=== PATIENT | female | born 1965 | race Caucasian/White ===

== ENCOUNTER 2017-05-20 10:57 | Day surgery (SDC) | payer OTHER ==
[2017-05-18 13:58] VITALS: BMI 60.2
[~2017-05-20 10:57] MED LIST: LACTATED RINGERS 1,000 ML IV SCH; LIDOCAINE 1% 20 ML VIAL (10MG/ML) FOR IV START INTRADERMA PRN
[2017-05-20 11:33] VITALS: RESP 16; TEMP 97.8
[2017-05-20 11:39] LABS: Glucose,Whole Blood 95 mg/dL (75-99)
[2017-05-20] MEDS ORDERED: PROPOFOL 10 MG/ML 20 ML VIAL IV ONE (12:45)
[2017-05-20] MEDS ORDERED: LIDOCAINE 1% INJ 10MG/ML (20 ML MDV) ONE (12:45)
--- NOTE | 2017-05-20 13:13 | P.PCN ---
Date of Procedure: 05/20/17 Procedure(s) Performed: Procedure: Total colonoscopy. Preoperative diagnosis: Screening for neoplasia. Postoperative diagnosis: Diverticulosis with no evidence of acute diverticulitis , strictures, polyps or cancer. Preparation: HalfLytely prep. Sedation: Was provided by anesthesia. Brief clinical history: The patient is a 51-year-old female who is referred for this evaluation for screening for neoplasia age being her risk factor. There is no family history of colon cancer. She has no significant abdominal complaints, bleeding or anemia. This would be her first colonoscopy. Procedure: With the patient on her left lateral decubitus position and after informed consent and adequate sedation, the perianal area was inspected and it did not show any fissures or fistulas. There were no masses felt on digital rectal examination. The Olympus CFQ 160L video colonoscope was then inserted in the rectum in the usual fashion and advanced to the cecum. There were several diverticular orifices seen scattered mostly on the left side with some on the right side and cecum but there was no evidence of acute diverticulitis or strictures. The mucosa appeared healthy. No polyps or tumors were seen. I retroflexed the endoscope in the rectum before the endoscope was withdrawn. The patient tolerated the procedure well. Plan: The patient was reassured. Discussed dietary measures. She will follow- up with you as planned and I recommended repeat exam in 10 years.
[2017-05-20 13:30] VITALS: BP 116/76; PULSE 76
== END 2017-05-20 13:57 | disposition home or self-care (01) ==
LOC: ORWHC2ENDO 10:57
DX: Z12.11 Encounter for screening for malignant neoplasm of colon (principal); K57.30 Diverticulosis of large intestine without perforation or abscess without bleeding; E66.01 Morbid (severe) obesity due to excess calories; Z68.44 Body mass index [BMI] 60.0-69.9, adult; M19.90 Unspecified osteoarthritis, unspecified site; Z79.899 Other long term (current) drug therapy
CPT/HCPCS: 81025; J2001; J2704; G0121

== ENCOUNTER → 2017-05-25 | Outpatient (CLI) | payer OTHER ==
--- NOTE | 2017-05-25 08:24 | MM ---
Reason for exam: screening (asymptomatic). Baseline mammogram. History: Patient is postmenopausal and is nulliparous. Physical Findings: Nurse did not find any significant physical abnormalities on exam. MG Screening Mammo w CAD Bilateral CC and MLO view(s) were taken. There are scattered fibroglandular densities. Intramammary nodes on the left. Nodular asymmetry anterior right breast on the MLO view without correlate on the CC view. As these are no comparisons, 6 month follow up recommended. These results were verbally communicated with the patient and result sheet given to the patient on 05/25/17. ASSESSMENT: Probably benign, BI-RAD 3 RECOMMENDATION: Follow-up diagnostic mammogram of the right breast in 6 months.
== END | disposition home or self-care (01) ==
LOC: RADMAMWWP 07:13
PROVIDERS: ATTEND Family Medicine
DX: Z12.31 Encounter for screening mammogram for malignant neoplasm of breast (principal)
CPT/HCPCS: 77067

== ENCOUNTER → 2021-02-04 | Outpatient (CLI) | payer BC ==
--- NOTE | 2021-02-04 15:32 | XR ---
EXAMINATION TYPE: XR chest 2V DATE OF EXAM: 02/04/2021 COMPARISON: NONE HISTORY: Shortness of breath TECHNIQUE: Frontal and lateral views of the chest are obtained. FINDINGS: There is no focal air space opacity, pleural effusion, or pneumothorax seen. The cardiac silhouette size is within normal limits. The osseous structures are intact. IMPRESSION: No acute cardiopulmonary process.
== END | disposition home or self-care (01) ==
LOC: RADXRMAIN 15:05
PROVIDERS: ATTEND Internal Medicine
DX: R06.02 Shortness of breath (principal)
CPT/HCPCS: 71046

== ENCOUNTER → 2021-02-04 | Outpatient (CLI) | payer BC ==
--- NOTE | 2021-02-05 10:01 | ECHOF ---
Referral Reason:R06.02 shortness of breath MEASUREMENTS -------- HEIGHT: 165.1 cm WEIGHT: 147.4 kg BP: IVSd: 1.0 cm (0.6 - 1.1) LVIDd: 4.5 cm (3.9 - 5.3) LVPWd: 1.1 cm (0.6 - 1.1) IVSs: 1.5 cm LVIDs: 2.3 cm LVPWs: 1.3 cm Ao Diam: 3.2 cm (2.0 - 3.7) AV Cusp: 2.2 cm (1.5 - 2.6) LA Diam: 2.7 cm (2.7 - 3.8) MV EXCURSION: 16.775 mm (> 18.000) MV EF SLOPE: 187 mm/s (70 - 150) EPSS: 1.2 cm MV E Ignacio: 0.79 m/s MV DecT: 150 ms MV A Ignacio: 0.87 m/s MV E/A Ratio: 0.91 RAP: 5.00 mmHg RVSP: 16.33 mmHg FINDINGS -------- This was a technically difficult study with suboptimal views. The left ventricular size is normal. There is mild concentric left ventricular hypertrophy. Overa ll left ventricular systolic function is normal with, an EF between 55 - 60 %. The RV was not well visualized. The left atrial size is normal. The right atrium was not well visualized. 5.0mg of Lumason was utilized for enhancement of images The aortic valve was not well visualized. The mitral valve is normal. Mild mitral regurgitation is present. The tricuspid valve appears structurally normal. Mild tricuspid regurgitation present. Right vent ricular systolic pressure is normal at < 35 mmHg. The pulmonic valve was not well visualized. The aortic root size is normal. IVC Not well visulized. There is no pericardial effusion. CONCLUSIONS -------- 1. This was a technically difficult study with suboptimal views. 2. The left ventricular size is normal. 3. There is mild concentric left ventricular hypertrophy. 4. Overall left ventricular systolic function is normal with, an EF between 55 - 60 %. 5. 5.0mg of Lumason was utilized for enhancement of images 6. Mild mitral regurgitation is present. 7. Mild tricuspid regurgitation present. 8. There is no pericardial effusion. AWNING MAKER: Jody Pradhan [facility]
== END | disposition home or self-care (01) ==
LOC: RADECHMAIN 14:26
PROVIDERS: ATTEND Internal Medicine
DX: R06.02 Shortness of breath (principal)
CPT/HCPCS: 93306; Q9950

== ENCOUNTER → 2021-03-25 | Outpatient (CLI) | payer BC ==
--- NOTE | 2021-03-26 13:56 | MM ---
Reason for exam: screening (asymptomatic). Last mammogram was performed 3 years and 10 months ago. History: Patient is postmenopausal and is nulliparous. Physical Findings: A clinical breast exam by your physician is recommended on an annual basis and results should be correlated with mammographic findings. MG Screening Mammo w CAD Bilateral CC, MLO, and XCCM view(s) were taken. Prior study comparison: May 25, 2017, bilateral MG screening mammo w CAD. There are scattered fibroglandular densities. There is chronic nodularity bilaterally. No significant changes when compared with prior studies. ASSESSMENT: Benign, BI-RAD 2 RECOMMENDATION: Routine screening mammogram of both breasts in 1 year.
== END | disposition home or self-care (01) ==
LOC: RADMAMWWP 09:37
PROVIDERS: ATTEND Internal Medicine
DX: Z12.31 Encounter for screening mammogram for malignant neoplasm of breast (principal)
CPT/HCPCS: 77067

== ENCOUNTER → 2022-04-27 | Outpatient (CLI) | payer SELFPAY ==
--- NOTE | 2022-04-28 17:59 | BD ---
EXAMINATION TYPE: Axial Bone Density DATE OF EXAM: 04/27/2022 COMPARISON: BASELINE CLINICAL HISTORY: 56 years old Female. ICD-10 CODE: N95.1 POST MENOPAUSAL SYMPTOMS Height: 64 Weight: 331 FRAX RISK QUESTIONS: Family History (Parent hip fracture): NO History of Fracture in Adulthood: YES 2017 RT ELBOW Secondary Osteoporosis: NO Rheumatoid Arthritis: NO RISK FACTORS HISTORY OF: Family History of Osteoporosis: YES FATHER Active: YES Diet low in dairy products/other sources of calcium: YES Postmenopausal woman: YES Lost more than 2 inches in height since high school: NO Frequent falls: NO Poor Health: NO MEDICATIONS: Thyroid Medications: YES Which medication: Levothyroxine How Lon MONTHS Additional Medications: YES RESTLESS LEG , NEURONTIN , IRON , VIT D , BABY ASPIRIN , EXAM MEASUREMENTS: Bone mineral densitometry was performed using the Yeelion System. Bone mineral density as measured about the Lumbar spine is: ----- L1-L4(G/cm2): 1.084 T Score Values are as follows: ----- L1: 0.0 ----- L2: -0.2 ----- L3: -1.2 ----- L4: -1.6 ----- L1-L4: -0.8 Bone mineral density BASELINE Bone mineral density about the R hip (g/cm2): 0.852 Bone mineral density about the L hip (g/cm2): 0.871 T Score values are as follows: -----R Neck: -1.9 -----L Neck: -2.7 -----R Total: -1.2 -----L Total: -1.1 Bone mineral density BASELINE FRAX%s: The graph provided illustrates a 15.5% chance for a major osteoporotic fx and a 3.1% chance f or the hips probability for fx in 10 years time. IMPRESSION: Osteoporosis (T Score less than -2.5). There is increased fracture risk and therapy is usually indicated based on age. Re-Screen 1-2 years. NOTE: T-SCORE=SD OF THE YOUNG ADULT MEAN.
--- NOTE | 2022-04-28 20:46 | MM ---
Reason for Exam: Screening (asymptomatic). Last mammogram was performed 1 year(s) and 1 month(s) ago. Patient History: Menarche at age 10. Patient has no children. Postmenopausal. Risk Values: Lisset 5 year model risk: 1.5%. NCI Lifetime model risk: 8.5%. Prior Study Comparison: 05/25/2017 Bilateral Screening Mammogram, [facility]. 03/25/2021 Bilateral Screening Mammogram, [facility]. Tissue Density: There are scattered fibroglandular densities. Findings: Analyzed By CAD. Unchanged low axillary tail lymph node on the left. There is no suspicious group of microcalcifications or new suspicious mass in either breast. Overall Assessment: Benign, BI-RAD 2 Management: Screening Mammogram of both breasts in 1 year. 1. Patient should continue monthly self breast exams. 2. A clinical breast exam by your physician is recommended on an annual basis. 3. This exam should not preclude additional follow-up of suspicious palpable abnormalities. Electronically signed and approved by: Concepcion Martinez M.D. Radiologist
== END | disposition home or self-care (01) ==
LOC: RADMAMWWP 14:12
PROVIDERS: ATTEND Internal Medicine
DX: Z12.31 Encounter for screening mammogram for malignant neoplasm of breast (principal); M81.0 Age-related osteoporosis without current pathological fracture; M85.88 Other specified disorders of bone density and structure, other site; Z78.0 Asymptomatic menopausal state
CPT/HCPCS: 77067; 77080

== ENCOUNTER → 2022-06-23 | Outpatient (CLI) | payer BC ==
--- NOTE | 2022-06-23 13:44 | XR ---
EXAMINATION TYPE: XR chest 2V DATE OF EXAM: 06/23/2022 COMPARISON: 02/05/2020 TECHNIQUE: PA and lateral views submitted. HISTORY: Cough FINDINGS: The lungs are clear and there is no pneumothorax, pleural effusion, or focal pneumonia. Heart size normal and no overt failure. Osseous structures demonstrate hypertrophic and degenerative changes of the spine. IMPRESSION: 1. No acute process.
== END | disposition home or self-care (01) ==
LOC: RADXRMAIN 13:28
PROVIDERS: ATTEND Internal Medicine
DX: R05.9 Cough, unspecified (principal)
CPT/HCPCS: 71046

== ENCOUNTER → 2022-10-01 | Outpatient (CLI) | payer BC ==
--- NOTE | 2022-10-02 13:08 | CA ---
Transthoracic Echo Report Name: Amparo Crowder Age: 57 Gender: F : 1965 Exam Date: 10/01/2022 08:21 Exam Location: [facility] Ht (in): 64 Wt (lb): 337 Ordering Physician: Anshul Page MD Attending/Referring Phys: Waste Chopper Rosario Knowles RDCS Procedure CPT: Indications: R06.02 SHORTNESS OF BREATH Cardiac Hx: Technical Quality: Poor Contrast 1: Total Dose (mL): Contrast 2: Total Dose (mL): MEASUREMENTS (Male / Female) Normal Values 2D ECHO LV Diastolic Diameter PLAX 4.1 cm 4.2 - 5.9 / 3.9 - 5.3 cm LV Systolic Diameter PLAX 2.4 cm IVS Diastolic Thickness 1.3 cm 0.6 - 1.0 / 0.6 - 0.9 cm LVPW Diastolic Thickness 1.1 cm 0.6 - 1.0 / 0.6 - 0.9 cm LV Relative Wall Thickness 0.6 RV Internal Dim ED PLAX 3.2 cm LA Volume 43.8 cm??? 18 - 58 / 22 - 52 cm??? M-MODE Aortic Root Diameter MM 2.6 cm LA Systolic Diameter MM 4.3 cm LA Ao Ratio MM 1.6 DOPPLER AV Peak Velocity 163.2 cm/s AV Peak Gradient 10.7 mmHg AV Mean Velocity 116.7 cm/s AV Mean Gradient 6.1 mmHg AV Velocity Time Integral 33.8 cm LVOT Peak Velocity 113.9 cm/s LVOT Peak Gradient 5.2 mmHg LVOT Velocity Time Integral 24.9 cm MV Area PHT 4.3 cm??? Mitral E Point Velocity 105.3 cm/s Mitral A Point Velocity 88.7 cm/s Mitral E to A Ratio 1.2 MV Deceleration Time 176.0 ms MV E' Velocity 11.9 cm/s Mitral E to MV E' Ratio 8.9 TR Peak Velocity 201.7 cm/s TR Peak Gradient 16.3 mmHg Right Ventricular Systolic Press 21.3 mmHg FINDINGS Left Ventricle Mildly increased left ventricular wall thickness. Left ventricular cavity size normal. Normal left ventricular systolic function with no obvious regional wall motion abnormalities. Left ventricular ejection fraction is estimated at 55-60 %. Right Ventricle Normal right ventricular size and function. Right ventricular systolic pressure within normal limits. Right Atrium Right atrium not well visualized. Left Atrium Normal left atrial size. Mitral Valve Structurally normal mitral valve. No mitral stenosis, regurgitation or prolapse. Aortic Valve No aortic valve stenosis or regurgitation. Tricuspid Valve Trace to mild tricuspid regurgitation. Pulmonic Valve Trace pulmonic regurgitation. Pericardium No pericardial effusion. Aorta Normal size aortic root and proximal ascending aorta. CONCLUSIONS Normal LV size and systolic function no significant abnormality in the Doppler exam. There is mild mitral annular calcification. No pericardial effusion, may be a fat pad Previewed by: Dr. Eleno Maciel MD (Electronically Signed) Final Date: 02 October 2022 13:07
== END | disposition home or self-care (01) ==
LOC: RADECHMAIN 08:09
PROVIDERS: ATTEND Internal Medicine
DX: I34.81 Nonrheumatic mitral (valve) annulus calcification (principal); R06.02 Shortness of breath
CPT/HCPCS: 93306

== ENCOUNTER → 2023-02-11 | Outpatient (CLI) | payer BC ==
--- NOTE | 2023-02-11 15:12 | P.SLEEP ---
History of Present Illness DATE: 02/11/2023 CONSULTATION/NEW PATIENT EVALUATION HISTORY OF PRESENT ILLNESS/SLEEP-WAKE EVALUATION: 57-year-old lady had been ev aluated in the sleep center for possible obstructive sleep apnea hypopnea syndrome. SLEEP SCHEDULE: Usually sleep schedule from 11 PM-2 AM to 4:30-9 AM on working days and until 7-9 AM on weekend. FALLING ASLEEP: Patient may have difficulties with falling asleep, although no TV in bedroom. DURING SLEEP: Patient sleeps on the side position, on the stomach and in the chair with snoring and witnessed by her and multiple awakenings from sleep 3 times with nocturia. Positive history of restless leg symptoms, dry mouth, sweating. No history of hypnogogical hallucinations, sleep paralysis, or cataplexy. DURING THE DAY/WAKE STATE: In the morning patient wake up tired, has problems with memory and depression. Prentice sleepiness scale is significantly increased to 16. Patient may take naps between 3 and 5 PM. PAST MEDICAL HISTORY: Hypothyroidism. PAST SURGICAL HISTORY: Bilateral knee replacement. MEDICATIONS: Ropinirole 0.5 mg at bedtime, levothyroxine 25 g once a day. SOCIAL HISTORY: Negative for smoking or using alcohol. FAMILY HISTORY: Hypertension, heart problems, stroke, asthma, sleep apnea, cancer, narcolepsy, crib . REVIEW OF SYSTEMS: Snoring, multiple awakenings from sleep, sleepiness during the day. No fevers. No double vision. No recent chest pain. No shortness of breath. No abdominal pain. No bleeding episodes. No blood in urine. No seizure episodes. PHYSICAL EXAMINATION: GENERAL: A pleasant patient without any distress. VITAL SIGNS: BP 130/82, HR 81, RR 16, weight 327.8 pounds, height 5 foot 4 inches, body mass index 55.7. HEENT: PERRLA, EOMI. Evaluation of oropharynx showed tongue protrudes midline, low position of soft palate Mallampati 4. NECK: Supple. No JVD. Thyroid is not palpable. 19 inches in circumference. LUNGS: Clear to percussion and to auscultation. Good air exchange. No wheezing or rhonchi. HEART: S1, S2 regular. No murmurs, gallops or rubs. ABDOMEN: Soft and nontender. Bowel sounds are present. No organomegaly julissa reciated, obese. EXTREMITIES: No clubbing or cyanosis. MAINTENANCE SPECIALIST: Awake, alert, and oriented x3. Cranial nerves 2 to 7 intact. There is no fasciculation or atrophy noted. No focal deficits observed. ASSESSMENT: 1. Snoring, multiple awakenings from sleep, extremely low position of soft palate, extremely wide neck 19 inches in circumference, sleepiness. Extremely high for sleepiness scale 16. Obstructive sleep apnea hypopnea syndrome. 2. Obesity, BMI 55.7. 3. History of sinus problems. 4. Restless leg syndrome. 5 hypothyroidism. 6 . Status post bilateral knee replacement. PLAN: 1. Polysomnography for evaluation of patient's breathing during sleep. 2. CPAP/BiPAP titration if sleep study confirms obstructive sleep apnea- hypopnea syndrome. 3. Preferable position during sleep on the side. 4. No driving if patient feels any sleepiness. Patient is aware of civil and criminal liability for unsafe driving. 5. Sleep hygiene with regular sleep time for at least 7.5-8 hours. 6. Watching and aggressive losing weight. Thank you very much for referring this patient for consultation. Sincerely, Sam Saavedra MD, PhD, FAASM. Diplomat of [place] [employer], Sleep Medicine Board by [place] [employer] [place] [employer] Representative of [facility] Medications and Allergies Home Medications Medication Instructions Recorded Confirmed Type Fluticasone Propionate [Flonase 1 spray EA NOSTRIL DAILY 05/18/17 05/20/17 History Allergy Relief] Ibuprofen [Advil] 600 - 800 mg PO Q8HR PRN 05/18/17 05/20/17 History Triamcinolone 0.5% Cream [Kenalog 1 applic TOPICAL DAILY PRN 05/18/17 05/20/17 History 0.5% Cream] Allergies Allergy/AdvReac Type Severity Reaction Status Date / Time No Known Allergies Allergy Verified 05/18/17 13:48 Sleep Note - Sleep Note Sleep Note: Temperature: Pulse Rate: Respiratory Rate: Blood Pressure: SpO2: Height: Weight: BMI: Neck Circumference:
== END ==
LOC: 3 N SLEEP 14:11
PROVIDERS: ATTEND Internal Medicine
DX: G47.33 Obstructive sleep apnea (adult) (pediatric) (principal); E66.9 Obesity, unspecified; G25.81 Restless legs syndrome; E03.9 Hypothyroidism, unspecified; Z96.653 Presence of artificial knee joint, bilateral; Z68.43 Body mass index [BMI] 50.0-59.9, adult; Z86.69 Personal history of other diseases of the nervous system and sense organs; Z79.890 Hormone replacement therapy
CPT/HCPCS: 99211

== ENCOUNTER 2023-03-30 19:35 | Outpatient (CLI) | payer BC ==
--- NOTE | 2023-04-07 16:49 | P.PCN ---
Description of Procedure: POLYSOMNOGRAPHY REPORT PROCEDURE(S)/DATE(S): Polysomnography 03/30/2023 CLINICAL: Patient has been seen in the sleep center for evaluation of obstructive sleep apnea-hypopnea syndrome. Please see my consultation. Sleep study has been done for evaluation of patient breathing during the sleep. PROCEDURE: The standard montage for clinical polysomnography included the electroencephalogram, the electrooculogram, the mentalis surface electromyography and Lead II cardiography. The respiratory battery consisted of measurements of nasal/buccal air flow, pressure transducer measurements from nose, thoracic and/or abdominal effort and intercostal surface electromyography. Video monitoring has been done to check for any parasomnia events. Nocturnal oxyhemoglobin saturations were obtained by finger oximetry. Step-partida titration with positive airway pressure was utilized to control the respiratory events, if necessary. RESULTS: During the diagnostic sleep study sleep efficiency was normal 93.4 %. Latency to sleep onset was normal 10.0 min. Sleep architecture showed stage NI slightly increased 8.2 %, Delta sleep was extremely short 0.1 %, REM sleep was in high range normal 26.3 %. Respiratory channel showed 0 obstructive apneas, 0 mixed apneas, 0 central apneas, 35 hypopneas with lowest oxygen level 82 %. Total apnea hypopnea index was 5.5. Heart rate was in the range between 63 and 74, average 68. EMG showed 22.2 periodic limb movements per hour with 0.2 micro-arousals per hour. IMPRESSIONS: 1. Mild Obstructive sleep apnea hypopnea syndrome. Patient presents with symptoms of significant excessive daytime sleepiness with [place] Sleepiness Scale of 16. 2. Periodic limb movements have been documented. Please see other impressions from consultation PLAN: 1. The patient will have AutoPAP treatment for correction of respiratory abnormalities during the sleep. 2. Losing weight program. 3. Sleep hygiene with regular time in bed for at least 7-1/2 hours. 4. No driving if feeling sleepiness. 5. Please check iron profile including ferritin level. Low level of iron may increase the risk for periodic limb movements. 6. I will see patient for follow-up visit to evaluate clinical response on treatment with CPAP, compliance with treatment and make any necessary adjustments related to mask fitting, pressure and humidification. If patient will continue to have symptoms of significant excessive daytime sleepiness while on treatment with CPAP and if necessary on treatment for periodic limb movements, we may consider multiple sleep latency test. Thank you very much for allowing me to participate in the management of your patient. Sincerely, Sam Saavedra MD, PhD, FAASM. Diplomat of [place] Board of Sleep Medicine, Sleep Medicine Board by [place] Board of Internal Medicine Electric Engine Mechanic of [facility] [place]
== END 2023-03-31 06:52 | disposition home or self-care (01) ==
LOC: 3 N SLEEP 19:35
PROVIDERS: ATTEND Internal Medicine
DX: G47.33 Obstructive sleep apnea (adult) (pediatric) (principal); G47.61 Periodic limb movement disorder
CPT/HCPCS: 95810

== ENCOUNTER → 2023-05-03 | Outpatient (CLI) | payer BC ==
--- NOTE | 2023-05-04 08:18 | MM ---
Reason for Exam: Screening (asymptomatic). Last screening mammogram was performed 12 month(s) ago. Patient History: Menarche at age 10. Patient has no children. Postmenopausal. Risk Values: Lisset 5 year model risk: 1.5%. NCI Lifetime model risk: 8.3%. Prior Study Comparison: 05/25/2017 Bilateral Screening Mammogram, [facility]. 03/25/2021 Bilateral Screening Mammogram, [facility]. 04/27/2022 Bilateral MG screening mammo w CAD, [facility]. Tissue Density: There are scattered fibroglandular densities. Findings: Analyzed By CAD. There is no suspicious group of microcalcifications or new suspicious mass in either breast. Overall Assessment: Negative, BI-RAD 1 Management: Screening Mammogram of both breasts in 1 year. . Patient should continue monthly self-breast exams. A clinical breast exam by your physician is recommended on an annual basis. This exam should not preclude additional follow-up of suspicious palpable abnormalities. Note on Lisset scores and lifetime risk: 1. A Lisset score greater than 3% is considered moderate risk. If this is the case, consider specialist referral to assess eligibility for a risk reducing agent. 2. If overall lifetime risk for the development of breast cancer is 20% or higher, the patient may qualify for future screening with alternating mammogram and breast MRI. Electronically signed and approved by: Cooper Novoa M.D. Radiologis
== END | disposition home or self-care (01) ==
LOC: RADMAMWWP 11:42
PROVIDERS: ATTEND Internal Medicine
DX: Z12.31 Encounter for screening mammogram for malignant neoplasm of breast (principal); Z78.0 Asymptomatic menopausal state
CPT/HCPCS: 77063; 77067

== ENCOUNTER → 2024-06-08 | Outpatient (CLI) | payer BC ==
--- NOTE | 2024-06-08 15:17 | MM ---
Reason for Exam: Screening (asymptomatic). Last mammogram was performed 1 year(s) and 2 month(s) ago. Patient History: Menarche at age 10. Patient has no children. Postmenopausal. Risk Values: Lisset 5 year model risk: 1.6%. NCI Lifetime model risk: 8.1%. Prior Study Comparison: 03/25/2021 Bilateral Screening Mammogram, [facility]. 04/27/2022 Bilateral MG screening mammo w CAD, [facility]. 05/03/2023 Bilateral MG 3D screening mammo w/cad, [facility]. Tissue Density: There are scattered areas of fibroglandular density. Findings: Analyzed By CAD. Chronic nodularity subareolar right MLO view. There is no suspicious group of microcalcifications or new suspicious mass in either breast. Overall Assessment: Benign, BI-RAD 2 Management: Screening Mammogram of both breasts in 1 year. Patient should continue monthly self-breast exams. A clinical breast exam by your physician is recommended on an annual basis. This exam should not preclude additional follow-up of suspicious palpable abnormalities. Note on Lisset scores and lifetime risk: 1. A Lisset score greater than 3% is considered moderate risk. If this is the case, consider specialist referral to assess eligibility for a risk reducing agent. 2. If overall lifetime risk for the development of breast cancer is 20% or higher, the patient may qualify for future screening with alternating mammogram and breast MRI. [facility], , 06/08/2024 3:14 PM. Electronically signed and approved by: Concepcion Martinez M.D. Radiologist
== END | disposition home or self-care (01) ==
LOC: RADMAMWWP 09:42
PROVIDERS: ATTEND Internal Medicine
DX: Z12.31 Encounter for screening mammogram for malignant neoplasm of breast (principal); R92.323 Mammographic fibroglandular density, bilateral breasts; Z78.0 Asymptomatic menopausal state
CPT/HCPCS: 77063; 77067